=== PATIENT | male | born 1960 | race Two or more races ===

== ENCOUNTER 2023-10-05 07:47 | Day surgery (SDC) | payer BC ==
[~2023-10-05] VITALS: Ht 170.2 cm; Wt 85.3 kg
[~2023-10-05 07:47] MED LIST: AMIO200T33 PO; APIX5TAB PO; ATOR10TA52 PO; BACL10TA PO; BUSP15TA60 PO; LEMB10TA PO; LOSA-535 PO; METO-289 PO; NIFE1TAB30 PO; POTA-228 PO; PREG50CA PO
[2023-10-05] MEDS: diphenhdrAMINE HCL 50 MG/1 ML VL IV ONE (08:30)
[2023-10-05] MEDS: fentaNYL CITRATE 100 MCG/2 ML VL IV ONE (08:30)
[2023-10-05] MEDS: MIDAZOLAM HCL 2MG/2ML 2ml VIAL (1mg/ml) IV ONE (08:30)
[2023-10-05] MEDS: LIDOCAINE VISCOUS 2% 15ML UD PO ONE (08:30)
[2023-10-05 08:34] VITALS: BP 196/97; PULSE 60; RESP 12; TEMP 98.3; O2SAT 97
[2023-10-05 09:27] VITALS: BP 190/82; PULSE 69; RESP 12; O2SAT 97
[2023-10-05] MEDS: hydrALAZINE HCL 20 MG/ML VL IV ONE (09:30)
[2023-10-05] MEDS: LOSARTAN POTASSIUM 50 MG TAB PO ONE (09:31)
[2023-10-05 09:40] VITALS: BP 200/83; PULSE 65; RESP 14; O2SAT 97
[2023-10-05 09:53] VITALS: BP 189/97; PULSE 62; RESP 20; O2SAT 97
[2023-10-05 10:01] VITALS: BP 181/79; PULSE 63; RESP 16; O2SAT 97
== END 2023-10-05 10:15 | disposition home or self-care (01) ==
LOC: CATH 07:47
PROVIDERS: ATTEND Internal Medicine
DX: I48.91 Unspecified atrial fibrillation (principal); Z53.8 Procedure and treatment not carried out for other reasons; F41.9 Anxiety disorder, unspecified; I10 Essential (primary) hypertension; Z82.49 Family history of ischemic heart disease and other diseases of the circulatory system
CPT/HCPCS: J2250